=== PATIENT | female | born 2000 | race Two or more races ===

== ENCOUNTER 2023-05-06 21:41 | Emergency (ER) | payer OTHER, SELFPAY ==
[2023-05-06 21:47] VITALS: BP 124/89; PULSE 71; RESP 18; TEMP 36.7; O2SAT 99; BMI 41.2
--- NOTE | 2023-05-06 21:59 | PC.NURSE ---
pt states she has had an earache for 5-6 days, went to urgent care, diagnosed with ear wax and was given oral steroids and a debrox kit, pain is getting worse and the debrox kit did not help
--- NOTE | 2023-05-06 22:19 | ED.EAR1 ---
HPI - Ear Problem General Chief complaint: Ear Stated complaint: EARACHE Time Seen by Provider: 05/06/23 22:19 Source: patient Mode of arrival: walk-in Limitations: no limitations History of Present Illness HPI Narrative: patient presented to us with a right ear pain that has been going on for the last few days she was evaluated in urgent care where she was diagnosed with impacted ear wax and she was discharged home with prednisone and Tobrex The patient presents after she said that the pain is worse she denies any headache but she mentioned that the pain radiates to her right jaw ,patient denies any drainage from the ear and denies any trauma She mentioned that there is difference in hearing. Right than left Related Data Home Medications Medication Instructions Recorded Confirmed etonogestrel 68 mg subdermal 1 implant subdermal .every 3 years 05/06/23 05/06/23 implant (Nexplanon) Previous Rx's Medication Instructions Recorded azithromycin 250 mg tablet See Rx Instructions PO .COMPLEX #6 05/06/23 (Zithromax Z-Laith) tabs fluticasone propionate 50 1 spray intranasal BID #16 grams 05/06/23 mcg/actuation nasal spray,suspension (Flonase Allergy Relief) ibuprofen 600 mg tablet 600 mg PO Q8H PRN pain #10 tabs 05/06/23 Allergies Allergy/AdvReac Type Severity Reaction Status Date / Time amoxicillin Allergy Unknown Verified 05/06/23 21:51 Review of Systems ROS Status of ROS 10 or more systems reviewed and unremarkable except as noted in history and below PFSH PFSH Social History Smoking status: Former smoker Exam Narrative Exam Narrative: Nurses notes and vital signs reviewed and patient is not hypoxic. General: Well-appearing and in no apparent distress. Skin: Warm, dry, no pallor noted. No rash. Head: Normocephalic, atraumatic. Neck: Supple, non-tender. Eye: Pupils are equal, round and EOMI. No scleral icterus. Ears, Nose, Mouth, and Throat: left ear examination was benign although the patient have some impacted wax as well right ear examination shows impacted wax that is partially blocking the viewcongestion of the tympanic membrane behind it and mild erythema , with Oral mucosa is moist, no posterior oropharynx erythema, uvula is mid-line Cardiovascular: Regular Rate and Rhythm without murmur, gallop or rub. Respiratory: No accessory muscle use or respiratory distress. Lungs are clear to auscultation, no wheezing, rales or rhonchi Chest Wall: no tenderness Back: No midline thoracic or lumbar vertebral tenderness. No CVA tenderness Musculoskeletal: normal ROM, no calf or popliteal tenderness, no lower extremity edema/swelling GI: Abdomen is soft, non-distended. Normal bowel sounds. No masses appreciated. No tenderness to palpation. No rebound, guarding, or rigidity noted. Neurological: A&O x4. No cranial nerve dysfunction observed. No truncal ataxia. Moves all extremities. Sensation intact. Psychiatric: Cooperative and interactive. Normal mood and affect. Constitutional Vital Signs - 24 hr 05/06/23 21:47 Temperature 98.1 F Pulse Rate [Monitor] 71 Respiratory Rate 18 Blood Pressure [Left Arm] 124/89 H Pulse Oximetry 99 Oxygen Delivery Method Room Air Course Vital Signs Vital signs: Vital Signs Temperature 98.1 F 05/06/23 21:47 Pulse Rate 71 05/06/23 21:47 Respiratory Rate 18 05/06/23 21:47 Blood Pressure 124/89 H 05/06/23 21:47 Pulse Oximetry 99 05/06/23 21:47 Oxygen Delivery Method Room Air 05/06/23 21:47 Temperature 98.1 F 05/06/23 21:47 Pulse Rate 71 05/06/23 21:47 Respiratory Rate 18 05/06/23 21:47 Blood Pressure 124/89 H 05/06/23 21:47 Pulse Oximetry 99 05/06/23 21:47 Oxygen Delivery Method Room Air 05/06/23 21:47 Medical Decision Making [facility] Narrative Medical decision making narrative: presnetaion is concerning for otitis media she'll be treated with Z-Laith in addition to Flonase the patient was instructed on monitoring her symptoms and in case of fever or any other concerns she is to come back to the Emergency Room The patient is to followup with primary care physician in next 2-3 days or to return to the emergency department should any of the signs or symptoms worsen or new symptoms develop. The patient agrees with the following Diagnosis and Treatment plan and the patient will be discharged home. Discharge Plan Discharge Chief Complaint: Ear Clinical Impression: Otitis media Patient Disposition: Home, Self-Care Time of Disposition Decision: 22:43 Condition: Good Mode of Transportation: Private Vehicle Prescriptions / Home Meds: New azithromycin [Zithromax Z-Laith] 250 mg tablet See Rx Instructions .ROUTE .COMPLEX Qty: 6 0RF Rx Instructions: For 250 mg dose pack: take 500 mg today (day 1), then 250 mg for 4 days (days 2-5) fluticasone propionate [Flonase Allergy Relief] 50 mcg/actuation spray,suspension 1 spray intranasal BID Qty: 16 0RF Rx Instructions: administer into each nostril ibuprofen 600 mg tablet 600 mg PO Q8H PRN (Reason: pain) Qty: 10 0RF No Action Nexplanon 68 mg implant 1 implant subdermal .every 3 years Instructions: Ear Infection (ED) Stand Alone Forms: Portal Instructions Referrals: Physician,Non-Staff, MD [Primary Care Provider] - 1 week Discharge Date/Time: 05/06/23 23:26
[2023-05-06] MEDS: AZITHROMYCIN 250 MG TABLET 500 MG PO (23:16)
[2023-05-06] MEDS: IBUPROFEN 600 MG TABLET PO (23:16)
== END 2023-05-06 23:26 | disposition home or self-care (01) ==
PROVIDERS: Emergency Provider Emergency Medicine
DX: H66.91 Otitis media, unspecified, right ear (principal); Z87.891 Personal history of nicotine dependence
CPT/HCPCS: 99283

== ENCOUNTER 2023-05-11 22:12 | Emergency (ER) | payer OTHER, SELFPAY ==
[2023-05-11 22:29] VITALS: BP 103/74; PULSE 84; RESP 16; TEMP 36.6; O2SAT 100; BMI 41.9
--- NOTE | 2023-05-11 22:41 | ECG_ITS ---
[facility] [place] Test Date: 2023-05-11 Pat Name: TIMA BUTLER Department: Room: - Gender: Female [employer]: : 2000 Requested By: Jason Vazquez Order Number: [id number] Reading MD: JIMMIE SAEED Measurements Intervals [place] Rate: 74 P: 36 WA: 150 QRS: 64 QRSD: 100 T: 30 QT: 372 QTc: 399 Interpretive Statements 1100 Sinus rhythm 1102 Sinus arrhythmia 9110 normal ECG No previous ECG available for comparison Electronically Signed On 05-12-2023 19:46:02 EDT by JIMMIE SAEED
--- NOTE | 2023-05-11 22:43 | ED.GENADUL1 ---
HPI - General Adult General Chief complaint: Syncope Stated complaint: PASSING IN/OUT Time Seen by Provider: 05/11/23 22:33 Source: patient Mode of arrival: Wheelchair Limitations: no limitations History of Present Illness HPI narrative: had breast reduction surgery a few weeks ago at [facility]. Since then she ahs been experiencing pain in both breasts and started to have some discharge from underneath the breasts. She called and spoke with the surgeon and they apparently had a virtual visit and were told that the symptoms and drainage are normal for the surgery . The family told me that a few days after the surgery, the patient had an episode in which she passed out and kind of looked like she was having a seizure . They took her to [facility] and she had a negative workup and was discharged home. They were told everything was ok . She was doing well until today when she said that the pain in the breasts was increasing and then she had 3 episodes in which, according to the family member who witnessed it, the patient went faint and then woke up and then went faint again - a total of three times. No recent fever, vomiting or diarrhea. She has apparently been eating and drinking normally. She has an appointment with the surgeon on 05/14/23. Related Data Home Medications Medication Instructions Recorded Confirmed etonogestrel 68 mg subdermal 1 implant subdermal .every 3 years 05/06/23 05/06/23 implant (Nexplanon) Previous Rx's Medication Instructions Recorded azithromycin 250 mg tablet See Rx Instructions PO .COMPLEX #6 05/06/23 (Zithromax Z-Laith) tabs fluticasone propionate 50 1 spray intranasal BID #16 grams 05/06/23 mcg/actuation nasal spray,suspension (Flonase Allergy Relief) ibuprofen 600 mg tablet 600 mg PO Q8H PRN pain #10 tabs 05/06/23 cephalexin 500 mg capsule 500 mg PO QID 7 days #28 caps 05/11/23 Allergies Allergy/AdvReac Type Severity Reaction Status Date / Time amoxicillin Allergy Unknown Verified 05/06/23 21:51 PFSH PFS Social History Smoking status: Former smoker Exam Narrative Exam Narrative: Nurses notes and vital signs reviewed and patient is not hypoxic. afebrile General: Well-appearing and in no apparent distress. Skin: Warm, dry, no pallor noted. No rash. Skin along the incisions on the bottom of both breasts is without any extending or streaking erythema, warmth or palpable abscess. There is a small area of dehiscence under the left breast along the incision line - no purulent discharge is noted. There is also a very small area of dehiscence under the right breast along the incision line- no purulent discharge is once again noted. Head: Normocephalic, atraumatic. Eye: Pupils are equal, round and EOMI. No scleral icterus. Cardiovascular: Regular Rate and Rhythm without murmur, gallop or rub. Respiratory: No accessory muscle use or respiratory distress. Lungs are clear to auscultation, no wheezing, rales or rhonchi Musculoskeletal: normal ROM GI: Abdomen is soft, non-distended. Normal bowel sounds. No tenderness to palpation. No rebound, guarding, or rigidity noted. Neurological: A&O x4. No cranial nerve dysfunction observed. No truncal ataxia. Moves all extremities. Sensation intact. Psychiatric: Cooperative and interactive. Normal mood and affect. Constitutional Vital Signs - 24 hr 05/11/23 22:29 Temperature 97.8 F Pulse Rate [Monitor] 84 Respiratory Rate 16 Blood Pressure [Right Arm] 103/74 Pulse Oximetry 100 Oxygen Delivery Method Room Air Course Vital Signs Vital signs: Vital Signs Temperature 97.8 F 05/11/23 22:29 Pulse Rate 84 05/11/23 22:29 Respiratory Rate 16 05/11/23 22:29 Blood Pressure 103/74 05/11/23 22:29 Pulse Oximetry 100 05/11/23 22:29 Oxygen Delivery Method Room Air 05/11/23 22:29 Temperature 97.8 F 05/11/23 22:29 Pulse Rate 84 05/11/23 22:29 Respiratory Rate 16 05/11/23 22:29 Blood Pressure 103/74 05/11/23 22:29 Pulse Oximetry 100 05/11/23 22:29 Oxygen Delivery Method Room Air 05/11/23 22:29 Medical Decision Making MDM Narrative Medical decision making narrative: Patient was placed on grain weigher and EKG obtained. Blood drawn and sent for evaluation. orthostatics were obtained and were . Patient received a liter of NS IVF. Patient found to have glucose only 61. I brought her milk and a chocolate muffin, which she ate. remainder of the chemistry and her preg tests were negative. WBC slightly elevated at 12k. Might be reactive but will start the patient on antibiotics. Given IV Rocephin in ED and the prescribed oral Keflex to take at home until she can see the surgeon for follow up. Patient and family informed of results and diagnosis and plan for treatment discussed. Patient encouraged to eat a normal diet, increase her fluid intake and see her surgeon for follow up as scheduled. Lab Data Lab results reviewed: Yes I reviewed the patient's lab results Labs: Lab Results 05/11/23 Range/Units 22:55 WBC 12.1 H (4.0-11.0) 10^3/uL RBC 3.42 L (4.20-5.40) 10^6/uL Hgb 10.8 L (12.0-16.0) g/dL Hct 33.4 L (36.0-48.0) % MCV 97.7 (81.0-99.0) fL MCH 31.6 (26.7-34.0) pg MCHC 32.3 (29.9-35.2) g/dL RDW 12.4 (11.0-15.0) % Plt Count 550 H (150-450) 10^3/uL MPV 7.9 L (9.5-13.5) fL Neut % (Auto) 66.3 (43.0-75.0) % Lymph % (Auto) 22.0 (20.5-60.0) % [place] % (Auto) 9.2 (1.7-12.0) % Eos % (Auto) 1.4 (0.9-7.0) % Baso % (Auto) 0.4 (0.2-2.0) % Neut # (Auto) 8.0 H (1.4-6.5) 10^3/uL Lymph # (Auto) 2.7 (1.2-3.8) 10^3/uL [place] # (Auto) 1.1 H (0.3-0.8) 10^3/uL Eos # (Auto) 0.2 (0.0-0.7) 10^3/uL Baso # (Auto) 0.1 (0.0-0.1) 10^3/uL Abs Immat Gran (auto) 0.08 H (0.00-0.03) 10^3/uL Imm/Tot Granulo (auto) 0.7 H (0.0-0.5) % Sodium 136 (136-145) mmol/L Potassium 3.9 (3.5-5.1) mmol/L Chloride 104 (98-107) mmol/L Carbon Dioxide 28.1 (21.0-32.0) mmol/L Anion Gap 7.8 BUN 14.0 (7.0-18.0) mg/dL Creatinine 0.86 (0.55-1.02) mg/dL Est GFR ( Amer) >60 (>=60) Est GFR (Non-Af Amer) >60 (>=60) BUN/Creatinine Ratio 16.3 Glucose 61 L (74-106) mg/dL Lactate 1.5 (0.4-2.0) mmol/L Calcium 9.1 (8.5-10.1) mg/dL Serum HCG, Qual Negative (NEGATIVE) ECG Data Interpretation: EKG interpretation: Emergency Department physician interpretation. Normal sinus rhythm at 74bpm. Normal axis, normal intervals and no ST segment elevation or depression. normal EKG. Discharge Plan Discharge Chief Complaint: Syncope Clinical Impression: Hypoglycemia, Syncope, Postoperative wound dehiscence Patient Disposition: Home, Self-Care Time of Disposition Decision: 23:32 Prescriptions / Home Meds: New cephalexin 500 mg capsule 500 mg PO QID 7 Days Qty: 28 0RF No Action Nexplanon 68 mg implant 1 implant subdermal .every 3 years azithromycin [Zithromax Z-Laith] 250 mg tablet See Rx Instructions .ROUTE .COMPLEX Qty: 6 0RF Rx Instructions: For 250 mg dose pack: take 500 mg today (day 1), then 250 mg for 4 days (days 2-5) fluticasone propionate [Flonase Allergy Relief] 50 mcg/actuation spray,suspension 1 spray intranasal BID Qty: 16 0RF Rx Instructions: administer into each nostril ibuprofen 600 mg tablet 600 mg PO Q8H PRN (Reason: pain) Qty: 10 0RF Instructions: Syncope (ED), Non-diabetic Hypoglycemia (ED), Care For Your Absorbable Stitches (ED) Additional Instructions: follow up with your surgeon in 3 days as scheduled Stand Alone Forms: Portal Instructions Referrals: Physician,Non-Staff, MD [Primary Care Provider] - 1 week
[2023-05-11 23:10] LABS: Basophils Absolute Auto 0.1 10^3/uL (0.0-0.1); Basophils Percent Auto 0.4 % (0.2-2.0); Eosinophils Absolute Auto 0.2 10^3/uL (0.0-0.7); Eosinophils Percent Auto 1.4 % (0.9-7.0); Hematocrit 33.4 % (36.0-48.0); Hemoglobin 10.8 g/dL (12.0-16.0); Immature Granulocytes Abs Auto 0.08 10^3/uL (0.00-0.03); Immature Granulocytes Pct Auto 0.7 % (0.0-0.5); Lymphocytes Absolute Auto 2.7 10^3/uL (1.2-3.8); Mean Corpuscular HGB Conc 32.3 g/dL (29.9-35.2); Mean Corpuscular Hemoglobin 31.6 pg (26.7-34.0); Mean Corpuscular Volume 97.7 fL (81.0-99.0); Mean Platelet Volume 7.9 fL (9.5-13.5); Monocytes Absolute Auto 1.1 10^3/uL (0.3-0.8); Monocytes Percent Auto 9.2 % (1.7-12.0); Neutrophils Percent Auto 66.3 % (43.0-75.0); Platelet Count 550 10^3/uL (150-450); Red Blood Count 3.42 10^6/uL (4.20-5.40); Red Cell Distribution Width 12.4 % (11.0-15.0); White Blood Count 12.1 10^3/uL (4.0-11.0)
[2023-05-11 23:18] LABS: Anion Gap 7.8; BUN Creatinine Ratio 16.3; Calcium 9.1 mg/dL (8.5-10.1); Carbon Dioxide 28.1 mmol/L (21.0-32.0); Chloride 104 mmol/L (98-107); Estimated GFR (African America >60 (>=60); Estimated GFR (Non-African Ame >60 (>=60); Glucose 61 mg/dL (74-106); Potassium 3.9 mmol/L (3.5-5.1); Sodium 136 mmol/L (136-145)
[2023-05-11 23:19] LABS: HCG Qualitative NEGATIVE (NEGATIVE)
[2023-05-11 23:25] LABS: Lactate/Lactic Acid 1.5 mmol/L (0.4-2.0)
[2023-05-11 23:30] VITALS: BP 116/79; BP 119/79; BP 120/81; PULSE 71; PULSE 80; PULSE 99
[2023-05-11] MEDS: 0.9 % SODIUM CHLORIDE 1,000 ML 999 ML IV (23:52)
[2023-05-11] MEDS: CEFTRIAXONE 1,000 MG in 0.9 % SODIUM CHLORIDE 50 ML 100 MG IV (23:52)
[2023-05-12 00:30] LABS: Glucometer 97 mg/dL (74-106)
--- NOTE | 2023-05-12 01:49 | PC.NURSE ---
orthostatic blood pressures obtained and given to physician
== END 2023-05-12 00:30 | disposition home or self-care (01) ==
PROVIDERS: Emergency Provider Emergency Medicine
DX: R55 Syncope and collapse (principal); E16.2 Hypoglycemia, unspecified; T81.31XA Disruption of external operation (surgical) wound, not elsewhere classified, initial encounter; Z79.899 Other long term (current) drug therapy
CPT/HCPCS: 36415; 80048; 83605; 84703; 85025; 87040; 87070; 87150; 87186; 87205; 93005; 96374; 99284